=== PATIENT | female | born 1970 | race Caucasian/White ===

== ENCOUNTER 2016-12-05 06:49 | Day surgery (SDC) | payer OTHER ==
[~2016-12-05] VITALS: Ht 160 cm; Wt 67.0 kg
[2016-12-05] VITALS (10 sets, daily range): BP systolic 108–128; BP diastolic 68–84; PULSE 75–99; RESP 12–18; O2SAT 99–100
--- NOTE | 2016-12-05 05:50 | HP PRE OP ---
[address] [address] PREOPERATIVE HISTORY AND PHYSICAL PATIENT: JAVIER MARTINEZ : 1970 MR#: [id number] ADMIT: 12/05/2016 JOB ID: [id number] DATE: 12/05/2016 IDENTIFICATION: The patient is a 46-year-old, AB0, woman. CHIEF COMPLAINT: Progressive menorrhagia plus increased endometrial thickness, for surgical investigation. HISTORY OF PRESENT ILLNESS: This patient experiences very heavy monthly periods, progressive during the past year. Pad and tampon change are required twice per hour for up to a couple of days each cycle. This has definitely negatively impacted the patient's life. Workup has included pelvic examination that demonstrated no obvious cervical or uterine abnormalities, transvaginal sonography, which demonstrated mildly thickened endometrium with heterogeneous component potentially representing small polyp, negative endometrial biopsy, and negative Pap. After considering a variety of options, the patient requested operative hysteroscopy for diagnostic as well as potentially therapeutic purposes. If polyp needing removal is present, to also undergo fractional D and C, as well as NovaSure ablation. She has understood that these procedures carry risks including bleeding, infection, cervical or uterine wall perforation, anesthetic risks, et cetera. She realizes that there is not a guarantee that polyp will be identified or that procedures as undertaken will resolve all bleeding problems, although ablation usually is effective. She will be followed over time to track efficacy. She has had all her questions answered, no guarantees have been stated or implied, and she has signed informed consent of her own free will. In summary, then the patient will be admitted to [facility] on December 05, 2016 on which day she will undergo operative hysteroscopy, possible endometrial polypectomy, fractional D and C, and NovaSure ablation. PHYSICAL EXAMINATION: On admission, height 63.75 inches, weight 147 pounds. Blood pressure 120/80. Neck no thyromegaly. Lungs clear to auscultation and percussion. Heart regular in rate and rhythm. Abdomen nontender, no mass. No surgical scarring. Pelvic examination: Vulva, vagina, and cervix no obvious epithelial abnormality. Bimanual examination no obvious uterine or adnexal mass. DIAGNOSTIC DATA: Preoperative lab work report not available at the time and place of this dictation. IMPRESSION: 1. Progressive menorrhagia, with potential for endometrial polyp, requesting surgical evaluation/intervention. 2. Sonographically-demonstrated mild endometrial thickness and heterogeneity, with potential for endometrial polyp, for surgical investigation/intervention. 3. Surgical history: a. Reproductive history: Vaginal delivery x5. b. Breast augmentation. c. Bilateral bunionectomy. 4. Varicose veins. 5. No known drug allergies. 6. Family history of hypertension (parents), heart disease (parents), stroke (parents), thyroid disease (sisters and mother), and Parkinson's (mother). PLAN: This patient will be admitted to [facility] on December 05, 2016, on which day she will undergo procedures as described in the history of present illness.
[~2016-12-05 06:49] MED LIST: DOCO1CAP3 PO; MULT-1018 PO
[2016-12-05] MEDS ORDERED: Propofol 10,000 mCg/mL 20 mL Inj ONE (06:50)
[2016-12-05] MEDS ORDERED: fentaNYL-PF 50 mCg/mL 2 mL Inj ONE (06:50)
[2016-12-05] MEDS ORDERED: Ondansetron 2 mg/mL 2 mL Inj ONE (06:50)
[2016-12-05] MEDS ORDERED: Dexamethasone 4 mg/mL Inj ONE (06:50)
[2016-12-05] MEDS ORDERED: EPHEDrine/NS 5 mg/mL 5 mL Syringe ONE (06:50)
[2016-12-05] MEDS: Lactated Ringer's 1,000 ML IV SCH ×2 (06:55→08:31)
[2016-12-05] MEDS ORDERED: IBUP100T47 PO (07:39)
--- NOTE | 2016-12-05 08:25 | PCM.HPANE ---
Patient Data Surgeon Admitting Provider: Attending Provider:Alex Snell MD Primary Care Physician:Other,Physician Other Provider:Margy Moralesingham Anesthesia Reason for Visit Menometrorrhagia And Menorhagia, Polyp Ht/WT & BMI Height (Feet): 5 Height (Inches): 3 Weight (Kilograms): 67 Body Mass Index 26.00 Allergies Coded Allergies: No Known Allergies (Unverified , 11/29/16) Past Anesthesia History Anesthesia History: Denies:: Abnormal Airway, Anesthesia Reactions (nausea ), Difficult Intubation, Fam Anesthesia Reaction, Fam Malignant Hypertherm, Malignant Hyperthermia Diabetes History Hx Diabetes?: No MRSA MRSA: Yes (last year- spider bite- groin - resolved) Medications Hypertension Medication: No Home Meds Incl Beta Carlita: No Reported Medications Ibuprofen (Advil)100 Mg [id number] Mg PO 12/05/16 Docosahexanoic Acid/Epa (Fish Oil Concentrate Softgel)1 Each Capsule1 Each PO DAILY 11/29/16 Multivitamin (Multi Vitamin Daily)1 Each Tablet1 Each PO DAILY 30 Days Ref 0 11/29/16 History History of ENT Problems?: No HEENT History: Denies:: Abnormal Airway Cataracts Difficult Intubation Dysphagia Glaucoma Hearing Problem Sinus Problem TMJ (? grinds- no nightguard) Denture Type: None Teeth Condition: Within Normal Limits Hx of Heart Problems?: No Cardiovascular History: Denies:: AICD Abdominal Aortic Aneurism Atrial Fibrillation Cardiac Surgery Chest Pain Congestive Heart Failure Coronary Artery Disease Edema Heart Murmur Hypertension Irregular Heartbeat Pacemaker Peripheral Vascular Rheumatic Fever Hx of Respiratory Problem?: No Respiratory History: Denies:: Asthma COPD Emphysema Oxygen Administration Pneumonia Pulmonary Embolism Tuberculosis Use of C-PAP Machine Use of Inhalers / NEBS Hx Neurologic Problems?: No Neurological History: Denies:: CVA Headaches Multiple Sclerosis Parkinson's Disease Seizures Hx of GI Problems?: No Hx of Problems?: No Genitourinary History: Denies:: Kidney Stones Urinary Tract Infection Female Hx: Denies:: Currently Problems with Breasts? Skin History: Denies:: History Skin Disorders? Pressure Ulcers Hx Musculoskeletal Problems?: No Musculoskeletal History: Denies:: Back Injury Fibromyalgia Joint Replacement Musculoskeletal Trauma Myasthenia Gravis Osteoarthritis Rheumatoid Arthritis Hx of Psycho/Social Problems?: No Psycho Social History: Denies:: Anxiety Hx Depression Hx Surgeries?: Yes (bunion x 2, breast augmentation) Hx Any Other Health Problems?: Yes Other History: Denies:: Cancer Thyroid Disease History Blood Transfusions: Positive for:: Accept Blood Products? Denies:: Blood Transfusions Hx Diabetes: No Hx Alcohol Use: YesAlcoholic Drinks Per Day: one to two drinks dailyHx Substance Use: NoHave You Smoked inLast 12 mo: No Stop/Bang S-Snoring: Do You Snore Loudly: No T-Tired: feel tired, fatigued: Yes O-Obsered: Observed not breath: No P-Blood Pressure: treated: No B- Body Mass Index > 35 kg/m2: No A- Age over 50: No N- Neck Large Circumference: No G- Gender Male: No YINA Total Score: 1 YINA Risk Assessment: Low Risk, <3 Yes Risk Assessment Category Category 1A: Patient has history of documented sleep apnea, and HAS NOT received any narcotic, sedative or anesthesia administration during this stay. Category 1B: Patient has history of documented sleep apnea, and HAS received any narcotic , sedative or anesthesia administration during this stay Category 2: Patient has SUSPECTED Obstructive Sleep Apnea, and HAS received any narcotic , sedative or anesthesia administration during this stay. Category 3: Patient has SUSPECTED Obstructive Sleep Apnea and HAS NOT received narcotic, sedative or anesthesia administration during this stay. Category 4: Outpatient in Procedural Areas with known sleep apnea or who screen positive for High Risk via the STOP/BANG questionnaire. Exam Exam General Appearance: Alert HEENT/AIRWAY: MP 2, Neck Movement (FROM, 3 FB) Meds/Labs/Diagnostics Admission Meds Current Medications Lactated Ringer's (Lr) 1,000 ml @ 120 mls/hr [id number] IV Last administered on t 06:55; Start 12/05/16 at 05:00; Stop 12/05/16 at 13:19 Plan Impression Patient chart reviewed, patient interviewed and anesthestic plan with risks, benefits, and alternatives discussed, and informed consent obtained. NPO per Anesth. Guidelines: Yes ASA Physical Status: ASA1 Normal Healthy Anesthetic Plan: GA Bene/Risks/Altern/Consents: Yes HP Complete Prior to Induction: Yes Other Discussed GA. All questions were answered and she agrees to proceed. Kevin Gonzalez MD Dec 05, 2016 07:19
[2016-12-05] MEDS ORDERED: MetoCLOpramide 5 mg/mL 2 mL Inj IVPUSH PRN ×3 (09:30→09:45)
[2016-12-05] MEDS ORDERED: Ondansetron 2 mg/mL 2 mL Inj IVPUSH PRN ×3 (09:30→09:45)
[2016-12-05] MEDS ORDERED: HYDROmorphone 1 mg/mL Inj IVPUSH PRN ×3 (09:30→09:45)
[2016-12-05] MEDS ORDERED: Lactated Ringer's 1,000 ML IV SCH ×2 (09:42→09:45)
[2016-12-05] MEDS ORDERED: Lactated Ringer's 500 ML IV PRN ×2 (09:42→09:45)
[2016-12-05] MEDS ORDERED: Phenylephrine 10,000 mCg/mL Inj IVPUSH PRN ×2 (09:45)
[2016-12-05] MEDS ORDERED: EPHEDrine Sulfate 50 mg/mL Inj IVPUSH PRN ×2 (09:45)
[2016-12-05] MEDS ORDERED: fentaNYL-PF 50 mCg/mL 2 mL Inj IVPUSH PRN ×2 (09:45)
[2016-12-05] MEDS ORDERED: Dexamethasone 4 mg/mL Inj IVPUSH PRN ×2 (09:45)
--- NOTE | 2016-12-05 09:45 | PCM.ANEP1 ---
Post Anesthesia PACU Phase 1 Assessment Vital Signs Vital Signs Date Time Temp Pulse Resp B/P Pulse Ox O2 Delivery O2 Flow Rate FiO2 12/05/16 09:40 99 15 123/84 100 Nasal Cannula 2 12/05/16 09:35 95 14 121/71 100 Nasal Cannula 2 12/05/16 07:31 35.8 82 16 128/75 99 Room Air 12/05/16 07:10 35.8 82 16 128/75 99 Room Air Anesthetic Administered: GA Level of Alertness: Awake, talking ROSS's with Equal Strength: Yes Pain: No Nausea or Vomiting: No CV Function & Hydration Stable: Yes Airway Device: Oxygen Delivery: Nasal Cannula Lungs: Clear to Auscultation Dermatome Level: Full Sensation PACU Phase 2 Assessment Complications: No Follow up Care: N/A Patient Instructions Provided: N/A Kevin Gonzalez MD Dec 05, 2016 09:45
--- NOTE | 2016-12-06 16:55 | PATH ---
SURGICAL PATHOLOGY Attending Physician:Alex Snell M.D CASE STATUS: Signed Out PATIENT NAME: JAVIER MARTINEZ PID: [id number] : 1970 DATE COLLECTED:12/05/2016 17:20 SPECIMEN: 1: Endocervix, Curettage 2: Endometrium, Curettage CLINICAL HISTORY: MENORRHAGIA, ENDOMETRIAL THICKENING 1). ENDOCERVICAL CURETTINGS 2). ENDOMETRIAL CURETTINGS FINAL DIAGNOSIS: 1.ENDOCERVICAL CURETTINGS: PORTIONS OF ENDOCERVICAL TISSUE AND STRIPS OF ENDOCERVICAL GLANDULAR EPITHELIUM; NEGATIVE FOR GLANDULAR DYSPLASIA AND MALIGNANCY. 2.ENDOMETRIAL CURETTINGS: PORTIONS OF PROLIFERATIVE ENDOMETRIUM; NEGATIVE FOR GLANDULAR HYPERPLASIA, CYTOLOGIC ATYPIA, AND MALIGNANCY. ICD10 N92.0 GROSS DESCRIPTION: The specimen is received in two formalin filled containers labeled with the patient's name. 1). The specimen is labeled "endocervical curetting" and consists of approximately a 1.25 cc aggregate of tissue, mucoid material and blood which is wrapped and entirely submitted in cassette 1A. 2). The specimen is labeled "endometrial curettings" and consists of approximately a 2 cc aggregate of tissue, mucoid material and blood which is entirely submitted in cassette 2A. 12/05/2016DC MICRO DESCRIPTION: See diagnosis. ICD-9 CODES: CPT CODES: 1: 01957 2: 48095 Electronically Signed Out Opal Fung MD [facility] Pathology [facility], [place] [address] Technical component performed at [facility], [address] [place] [address] Ave[address], [place], [address]
--- NOTE | 2016-12-07 00:16 | OP ---
[address] [address] OPERATIVE REPORT PATIENT: JAVIER MARTINEZ : 1970 MR#: [id number] ADMIT: 12/05/2016 JOB ID: [id number] DATE OF SURGERY: 12/05/2016 SURGEON: Alex Snell MD. ANESTHESIA: General. PREOPERATIVE DIAGNOSIS(ES): 1. Menorrhagia. 2. Endometrial thickening, rule out endometrial polyp. POSTOPERATIVE DIAGNOSIS(ES): 1. Menorrhagia. 2. Endometrial thickening, no polyp. PROCEDURES PERFORMED: 1. Diagnostic hysteroscopy. 2. Fractional dilation and curettage. 3. NovaSure ablation. FINDINGS AT SURGERY: Upon hysteroscopic evaluation, there was noted no endometrial polyp, endocervical polyp, submucous fibroid, or endometrial change specifically suggestive of malignancy. There was diffusely thickened endometrium, particularly on the anterior uterine fundal wall. Moderate tissue was obtained on endometrial curettage. Bleeding was scant. It certainly is anticipated that patient will do very well during postoperative timeframe. We will follow up pathology report on the fractional D and C, yet also we will follow patient's bleeding pattern over time, anticipating that it will very,very likely improve a lot with the ablation procedure. PROCEDURE: The patient was placed in supine position on the operating table and general anesthesia was induced. She was then very carefully repositioned into the low dorsal lithotomy position and prepped and draped in usual sterile manner. She was placed in the Trendelenburg position and time-out was taken. Weighted speculum was then placed against the posterior vaginal wall and a tenaculum on the anterior cervical lip and another on the posterior cervical lip. Cervical length was then determined followed by uterine sounding and then uterine cavity length. Cervix was then dilated up to 6 mm and MyoSure hysteroscopic apparatus was then advanced with findings as noted above. There was no specific focal growth to remove; thus, MyoSure visualization was discontinued, followed by performance of fractional D and C. Endocervical curettage was first accomplished followed by endometrial curettage. Then, cervix was dilated up to 7-8 mm and NovaSure apparatus was advanced to the uterine cavity and uterine cavity width determined. Uterine cavity assessment was then accomplished, followed by NovaSure ablation. This was accomplished in usual fashion, apparatus was then removed from the cervix and uterus, and each tenaculum was then removed from the cervix, and pressure was held on the tenaculum sites until bleeding ceased. Sponge and instrument counts were then found to be correct. The patient was returned to the supine position, awakened, and taken to the recovery room. ESTIMATED BLOOD LOSS: Scant. COMPLICATIONS: None. PROGNOSIS: Good for surgical recovery.
== END 2016-12-05 23:59 | disposition home or self-care (01) ==
LOC: SAS 06:49
PROVIDERS: ATTEND Obstetrics & Gynecology
PROC: 0U5B7ZZ Destruction of Endometrium, Via Natural or Artificial Opening (ICD-10-PCS; 2016-12-05)
PROC: 0UDB8ZX Extraction of Endometrium, Via Natural or Artificial Opening Endoscopic, Diagnostic (ICD-10-PCS; principal; 2016-12-05 09:00)
DX: N92.0 Excessive and frequent menstruation with regular cycle (principal); R93.8 Abnormal findings on diagnostic imaging of other specified body structures
CPT/HCPCS: 58563; J1100; J1885; J2405; J3010; J7120